=== PATIENT | female | born 1985 | race Caucasian/White ===

== ENCOUNTER 2024-04-29 10:05 | Emergency (ER) | payer OTHER ==
[~2024-04-29] VITALS: Ht 162.6 cm; Wt 65.8 kg
[2024-04-29 10:06] VITALS: TEMP 98.3
[2024-04-29 10:30] LABS: BASOPHILS % (AUTO) 0.8 % (0.0-2.0); EOSINOPHILS % (AUTO) 1.9 % (1.0-6.0); HEMATOCRIT 32.2 % (36-46); HEMOGLOBIN 9.8 g/dL (12.0-16.0); LYMPHOCYTES # (AUTO) 1.9 K/uL (1.0-4.8); LYMPHOCYTES % (AUTO) 40.1 % (22.0-44.0); MEAN CORPUSCULAR HEMOGLOBIN 19.6 pg (26.0-34.0); MEAN CORPUSCULAR HGB CONC 30.4 G/dL (31.0-37.0); MEAN CORPUSCULAR VOLUME 64 fL (80-100); MONOCYTES # (AUTO) 0.5 K/uL (0.1-1.0); MONOCYTES % (AUTO) 10.5 % (2.0-9.0); NEUTROPHILS # (AUTO) 2.2 K/uL (1.8-7.7); NEUTROPHILS % (AUTO) 46.7 % (40.0-70.0); PLATELET COUNT (AUTO) 271 K/uL (150-450); RED CELL DISTRIBUTION WIDTH 17.4 % (11.5-14.5); WHITE BLOOD COUNT (AUTO) 4.7 K/uL (4.5-11.0)
[2024-04-29 10:44] LABS: ANION GAP 6 mmol/L (8-16); CALCIUM, TOTAL 8.9 mg/dL (8.8-10.5); CARBON DIOXIDE 29 mmol/L (22-29); CHLORIDE 103 mmol/L (98-107); CREATININE 0.72 mg/dL (0.60-1.30); GLOMERULAR FILTR. RATE CALC > 60 mL/min (>60); GLUCOSE,RANDOM 90 mg/dL (70-110); POTASSIUM 3.9 mmol/L (3.5-5.1); SODIUM SERUM 138 mmol/L (136-145); UREA NITROGEN, BLOOD 21 mg/dL (7-18)
[2024-04-29] MEDS: ACETAMINOPHEN 325 MG TABLET PO ONE (10:48)
[2024-04-29 10:54] LABS: TROPONIN I-HIGH SENSITIVITY Less Than 4 ng/L (<51)
[2024-04-29 10:55] LABS: ALANINE AMINOTRANSFERASE 14 U/L (12-78); ALBUMIN 3.2 g/dL (3.4-5.0); ALKALINE PHOSPHATASE 54 U/L (46-116); ASPARTATE AMINOTRANSFERASE 16 U/L (15-37); BILIRUBIN,TOTAL 0.4 mg/dL (0.1-1.0); HCG,QUANTITATIVE < 1 mIU/mL (0-6); TOTAL PROTEIN, SERUM 6.7 g/dL (6.4-8.2)
[2024-04-29] MEDS: ACETAMINOPHEN 650 MG/ISO-OSM 65 ML IV ONE (11:25)
[2024-04-29 12:00] VITALS: BP 113/77; PULSE 68; RESP 18; O2SAT 99
[2024-04-29 12:07] LABS: COVID AG,FIA SOURCE NASAL SWAB
[2024-04-29 12:31] LABS: SARS-COV2 (COVID) ANTIGEN,FIA Negative (Negative)
== END 2024-04-29 13:08 | disposition short-term general hospital (02) ==
LOC: EMS 10:05
DX: R47.81 Slurred speech (principal); R53.1 Weakness; Z20.822 Contact with and (suspected) exposure to COVID-19
CPT/HCPCS: 99285; 70496; 96365; 71045; 87426; 80053; 84484; 84702; 85025; 36415; 70498; 82948; 93005; 70450; J0131

== ENCOUNTER 2024-07-17 14:32 | Emergency (ER) | payer OTHER ==
[~2024-07-17] VITALS: Ht 165.1 cm; Wt 65.9 kg
[2024-07-17 15:25] VITALS: TEMP 98
[2024-07-17 16:20] LABS: ANION GAP 15 mmol/L (8-16); CALCIUM, TOTAL 8.9 mg/dL (8.8-10.5); CARBON DIOXIDE 23 mmol/L (22-29); CHLORIDE 101 mmol/L (98-107); CREATININE 0.73 mg/dL (0.60-1.30); GLOMERULAR FILTR. RATE CALC > 60 mL/min (>60); GLUCOSE,RANDOM 65 mg/dL (70-110); POTASSIUM 3.5 mmol/L (3.5-5.1); SODIUM SERUM 139 mmol/L (136-145); UREA NITROGEN, BLOOD 17 mg/dL (7-18)
[2024-07-17 16:31] LABS: BASOPHILS % (AUTO) 1.3 % (0.0-2.0); HEMATOCRIT 35.3 % (36-46); HEMOGLOBIN 10.5 g/dL (12.0-16.0); LYMPHOCYTES # (AUTO) 1.6 K/uL (1.0-4.8); LYMPHOCYTES % (AUTO) 37.4 % (22.0-44.0); MEAN CORPUSCULAR HEMOGLOBIN 19.2 pg (26.0-34.0); MEAN CORPUSCULAR HGB CONC 29.8 G/dL (31.0-37.0); MEAN CORPUSCULAR VOLUME 64 fL (80-100); MONOCYTES # (AUTO) 0.3 K/uL (0.1-1.0); MONOCYTES % (AUTO) 6.3 % (2.0-9.0); NEUTROPHILS # (AUTO) 2.4 K/uL (1.8-7.7); PLATELET COUNT (AUTO) 248 K/uL (150-450); RED BLOOD CELL COUNT(AUTO) 5.48 MIL/uL (4.00-5.20); RED CELL DISTRIBUTION WIDTH 19.9 % (11.5-14.5); WHITE BLOOD COUNT (AUTO) 4.4 K/uL (4.5-11.0)
[2024-07-17 16:33] LABS: ALANINE AMINOTRANSFERASE 75 U/L (12-78); ALBUMIN 3.7 g/dL (3.4-5.0); ALKALINE PHOSPHATASE 64 U/L (46-116); ASPARTATE AMINOTRANSFERASE 20 U/L (15-37); BILIRUBIN,TOTAL 0.9 mg/dL (0.1-1.0); THYROID STIMULATING HORMONE 1.82 uIU/mL (0.36-3.74); TOTAL PROTEIN, SERUM 7.1 g/dL (6.4-8.2)
[2024-07-17] MEDS: ACETAMINOPHEN 500 MG TABLET PO ONE (16:48)
[2024-07-17 17:13] LABS: TROPONIN I-HIGH SENSITIVITY Less Than 4 ng/L (<51)
[2024-07-17 17:13] LABS: PH,URINE DRUG SCREEN 5.5 (5.0-8.0)
[2024-07-17 17:14] LABS: RBC MORPHOLOGY COMMENT ABNORMAL RBC MORPH
[2024-07-17 17:26] LABS: ALCOHOL, URINE DRUG SCREEN NEGATIVE (NEGATIVE); AMPHET/METH SCREEN,URINE NEGATIVE (NEGATIVE); BARBITURATE SCREEN, URINE NEGATIVE (NEGATIVE); BENZODIAZEPINES SCREEN,URINE NEGATIVE (NEGATIVE); CANNABINOID SCREEN,URINE NEGATIVE (NEGATIVE); COCAINE SCREEN,URINE NEGATIVE (NEGATIVE); METHADONE SCREEN, URINE NEGATIVE (NEGATIVE); OPIATE SCREEN,URINE NEGATIVE (NEGATIVE); PHENCYCLIDINE SCREEN,URINE NEGATIVE (NEGATIVE)
[2024-07-17 17:42] LABS: PATHOLOGY REVIEW, DIFF YES
[2024-07-17 18:40] VITALS: BP 138/84; PULSE 80; RESP 16; O2SAT 97
== END 2024-07-17 20:00 | disposition home or self-care (01) ==
LOC: EMS 14:32
DX: R07.89 Other chest pain (principal); M79.10 Myalgia, unspecified site; R25.1 Tremor, unspecified; I10 Essential (primary) hypertension; Z88.5 Allergy status to narcotic agent
CPT/HCPCS: 80048; 80076; 80307; 84443; 84484; 85025; 93005; 99284

== ENCOUNTER 2024-08-14 19:22 | Inpatient (IN) | payer OTHER, MEDICAID ==
[~2024-08-14] VITALS: Ht 154.9 cm; Wt 64.4 kg
[2024-08-14 20:44] LABS: COVID AG,FIA SOURCE NASAL SWAB
[2024-08-14 21:05] LABS: INFLUENZA TYPE A NEGATIVE FOR TYPE A (NEGATIVE); INFLUENZA TYPE B NEGATIVE FOR TYPE B (NEGATIVE)
[2024-08-14 21:06] LABS: SARS-COV2 (COVID) ANTIGEN,FIA Negative (Negative)
[2024-08-14 22:15] LABS: BASOPHILS % (AUTO) 0.6 % (0.0-2.0); EOSINOPHILS % (AUTO) 2.3 % (1.0-6.0); LYMPHOCYTES # (AUTO) 2.4 K/uL (1.0-4.8); LYMPHOCYTES % (AUTO) 39.5 % (22.0-44.0); MEAN CORPUSCULAR HEMOGLOBIN 19.7 pg (26.0-34.0); MEAN CORPUSCULAR HGB CONC 30.4 G/dL (31.0-37.0); MEAN CORPUSCULAR VOLUME 65 fL (80-100); MONOCYTES # (AUTO) 0.5 K/uL (0.1-1.0); MONOCYTES % (AUTO) 7.9 % (2.0-9.0); NEUTROPHILS % (AUTO) 49.7 % (40.0-70.0); PLATELET COUNT (AUTO) 264 K/uL (150-450); RED BLOOD CELL COUNT(AUTO) 5.09 MIL/uL (4.00-5.20); RED CELL DISTRIBUTION WIDTH 20.4 % (11.5-14.5); WHITE BLOOD COUNT (AUTO) 6.1 K/uL (4.5-11.0)
[2024-08-14 22:19] LABS: ANION GAP 10 mmol/L (8-16); CALCIUM, TOTAL 8.9 mg/dL (8.8-10.5); CARBON DIOXIDE 27 mmol/L (22-29); CHLORIDE 104 mmol/L (98-107); CREATININE 0.62 mg/dL (0.60-1.30); GLOMERULAR FILTR. RATE CALC > 60 mL/min (>60); GLUCOSE,RANDOM 94 mg/dL (70-110); SODIUM SERUM 141 mmol/L (136-145); UREA NITROGEN, BLOOD 9 mg/dL (7-18)
[2024-08-14 22:25] LABS: ALCOHOL, BLOOD (SERUM) < 3 mg/dL (0-10)
[2024-08-14 22:26] LABS: POTASSIUM 2.8 mmol/L (3.5-5.1)
[2024-08-15] MEDS: POTASSIUM CHLORIDE 20 MEQ ER TABLET PO ONE ×3 (02:51→06:19)
[2024-08-15] MEDS ORDERED: LORazepam 2 MG TABLET PO PRN (03:15)
[2024-08-15 09:24] VITALS: O2SAT 100
[2024-08-15 13:46] VITALS: BP 120/82; PULSE 93; RESP 18; TEMP 97.2; O2SAT 100
[2024-08-15] MEDS ORDERED: INFLUENZA VIRUS VACCINE TVS (6MO+) 2024-25/PF 45 MCG/0.5 ML SYRINGE IM. ONE (14:15)
[2024-08-15 20:09] VITALS: BP 134/62; PULSE 88; RESP 19; TEMP 97.4; O2SAT 97
[2024-08-15] MEDS ORDERED: LOPERAMIDE HCL 2 MG CAPSULE PO PRN (21:00)
[2024-08-15] MEDS ORDERED: MAGNESIUM HYDROXIDE SUSPENSION 30 ML UDCUP PO PRN (21:00)
[2024-08-15] MEDS ORDERED: DOCUSATE SODIUM 100 MG CAPSULE PO PRN (21:00)
[2024-08-15] MEDS ORDERED: PETROLATUM,WHITE 28 GM JELLY TP PRN (21:00)
[2024-08-15] MEDS ORDERED: CloNIDine HCL 0.1 MG TABLET PO PRN (21:00)
[2024-08-15] MEDS ORDERED: MAG HYDROX/ALUMINUM HYD/SIMETH ES 30 ML SUSPENSION UDCUP PO PRN (21:00)
[2024-08-15] MEDS ORDERED: ALBUTEROL SULFATE HFA 90 MCG/PUFF 8 GM INHALER IH PRN (21:00)
[2024-08-15] MEDS ORDERED: NICOTINE 14 MG/24 HOUR PATCH TD PRN (21:00)
[2024-08-15] MEDS ORDERED: ONDANSETRON 4 MG TABLET PO PRN (21:00)
[2024-08-16] MEDS: GuaiFENesin/D-METHORPHAN [SUGAR-FREE] 200-20MG/10 ML SYRUP UDCUP PO PRN (06:09)
[2024-08-16 08:25] VITALS: BP 98/96; PULSE 100; RESP 18; TEMP 98.3; O2SAT 97
[2024-08-16] MEDS: DIVALPROEX SODIUM 500 MG DR TABLET PO SCH (12:45)
[2024-08-16] MEDS: RisperiDONE 2 MG TABLET PO SCH (16:37)
[2024-08-16] MEDS: AMOXICILLIN TRIHYDRATE 500 MG CAPSULE PO SCH (17:54)
[2024-08-16 20:48] VITALS: BP 123/96; PULSE 131; RESP 19; TEMP 97.5; O2SAT 98
[2024-08-16] MEDS: IBUPROFEN 400 MG TABLET PO PRN (22:34)
[2024-08-16 23:01] VITALS: BP 138/87; PULSE 97; RESP 17; TEMP 97.5; O2SAT 98
[2024-08-17] MEDS: GuaiFENesin/D-METHORPHAN [SUGAR-FREE] 200-20MG/10 ML SYRUP UDCUP PO PRN (05:35)
[2024-08-17 08:22] VITALS: BP 109/72; PULSE 19; RESP 18; TEMP 97.4; O2SAT 97
[2024-08-17 08:30] VITALS: PULSE 75
[2024-08-17] MEDS: SERTRALINE HCL 100 MG TABLET PO SCH (08:50)
[2024-08-17 20:36] VITALS: BP 120/73; PULSE 68; RESP 16; TEMP 97.6; O2SAT 97
[2024-08-18 08:25] VITALS: BP 131/78; PULSE 86; RESP 17; TEMP 98; O2SAT 97
[2024-08-18 09:11] LABS: POTASSIUM 3.9 mmol/L (3.5-5.1)
[2024-08-18 20:15] VITALS: BP 136/95; PULSE 95; RESP 16; TEMP 98; O2SAT 95
[2024-08-18 20:43] VITALS: BP_SYST 116; BP_SYST 136; BP_DIAS 59; BP_DIAS 95; PULSE 108; PULSE 91; RESP 14; TEMP 96.8; O2SAT 98
[2024-08-18 21:30] LABS: GLUCOMETER DEV NAME(LOC) BV2S.; GLUCOSE,POINT OF CARE 111 MG/DL (70-110)
[2024-08-19 08:35] VITALS: BP 106/69; PULSE 99; RESP 16; TEMP 96.5; O2SAT 98
[2024-08-19 08:57] LABS: BASOPHILS % (AUTO) 0.8 % (0.0-2.0); EOSINOPHILS % (AUTO) 1.7 % (1.0-6.0); HEMATOCRIT 31.9 % (36-46); HEMOGLOBIN 9.7 g/dL (12.0-16.0); LYMPHOCYTES # (AUTO) 1.5 K/uL (1.0-4.8); LYMPHOCYTES % (AUTO) 34.6 % (22.0-44.0); MEAN CORPUSCULAR HGB CONC 30.4 G/dL (31.0-37.0); MEAN CORPUSCULAR VOLUME 66 fL (80-100); MONOCYTES # (AUTO) 0.3 K/uL (0.1-1.0); NEUTROPHILS # (AUTO) 2.4 K/uL (1.8-7.7); NEUTROPHILS % (AUTO) 56.9 % (40.0-70.0); PLATELET COUNT (AUTO) 233 K/uL (150-450); RED BLOOD CELL COUNT(AUTO) 4.86 MIL/uL (4.00-5.20); RED CELL DISTRIBUTION WIDTH 20.2 % (11.5-14.5); WHITE BLOOD COUNT (AUTO) 4.2 K/uL (4.5-11.0)
[2024-08-19] MEDS: HALOPERIDOL 5 MG TABLET PO PRN (18:01)
[2024-08-19 20:28] VITALS: BP 135/77; PULSE 86; RESP 17; TEMP 96.7; O2SAT 100
[2024-08-20 08:42] VITALS: BP 118/63; PULSE 93; RESP 16; TEMP 97.2; O2SAT 99
[2024-08-20 09:50] VITALS: BP 115/81; PULSE 109; RESP 18; TEMP 100; O2SAT 98
[2024-08-20] MEDS: ACETAMINOPHEN 325 MG TABLET PO PRN (10:22)
[2024-08-20 11:56] LABS: GLUCOMETER DEV NAME(LOC) POC.BV; POC SARS-COV2 AG, FIA NEGATIVE (NEGATIVE)
[2024-08-20 12:15] VITALS: BP 107/60; PULSE 76; RESP 17; TEMP 99.8; O2SAT 98
[2024-08-20 22:25] VITALS: BP 118/68; PULSE 84; RESP 16; TEMP 98; O2SAT 97
[2024-08-21 08:19] VITALS: BP 114/70; PULSE 91; RESP 16; TEMP 98.6; O2SAT 100
[2024-08-21 09:06] LABS: POTASSIUM 4.1 mmol/L (3.5-5.1)
[2024-08-21 09:12] LABS: APPEARANCE,URINE CLEAR (CLEAR); BILIRUBIN,URINE NEGATIVE (NEGATIVE); COLOR,URINE LIGHT YELLOW (YELLOW); GLUCOSE, URINE (UA) NEGATIVE (NEGATIVE); KETONES,URINE NEGATIVE (NEGATIVE); LEUKOCYTE ESTERASE ,URINE NEGATIVE (NEGATIVE); NITRATE,URINE NEGATIVE (NEGATIVE); OCCULT BLOOD,URINE NEGATIVE (NEGATIVE); PH,URINE 7.5 (5.0-8.0); PH,URINE DRUG SCREEN 7.5 (5.0-8.0); PROTEIN,URINE NEGATIVE (NEGATIVE); SPECIFIC GRAVITIY, URINE 1.014 (1.003-1.030); UROBILINOGEN,URINE <=1.0 mg/dL (<=1.0)
[2024-08-21 09:19] LABS: AMPHET/METH SCREEN,URINE NEGATIVE (NEGATIVE); BARBITURATE SCREEN, URINE NEGATIVE (NEGATIVE); BENZODIAZEPINES SCREEN,URINE NEGATIVE (NEGATIVE); CANNABINOID SCREEN,URINE NEGATIVE (NEGATIVE); COCAINE SCREEN,URINE NEGATIVE (NEGATIVE); METHADONE SCREEN, URINE NEGATIVE (NEGATIVE); OPIATE SCREEN,URINE NEGATIVE (NEGATIVE); PHENCYCLIDINE SCREEN,URINE NEGATIVE (NEGATIVE)
[2024-08-21 09:22] LABS: ALCOHOL, URINE DRUG SCREEN NEGATIVE (NEGATIVE)
[2024-08-21 16:59] VITALS: RESP 17; O2SAT 100
[2024-08-21 17:59] VITALS: RESP 17; O2SAT 100
[2024-08-21 22:21] VITALS: BP 107/61; PULSE 112; RESP 16; TEMP 98.6; O2SAT 95
[2024-08-22 08:06] VITALS: BP 130/77; PULSE 95; RESP 18; TEMP 98; O2SAT 99
[2024-08-22 10:28] VITALS: RESP 17; O2SAT 98
[2024-08-22 11:28] VITALS: RESP 18; O2SAT 99
[2024-08-22] MEDS ORDERED: AMOX TR/POT CLAV 500 MG/125 MG TABLET PO SCH (17:00)
[2024-08-22 18:50] VITALS: RESP 18
[2024-08-22 19:52] VITALS: RESP 18
[2024-08-22] MEDS: LEVOFLOXACIN 500 MG TABLET PO SCH (20:10)
[2024-08-22 21:16] VITALS: BP 132/78; PULSE 86; RESP 18; TEMP 96
[2024-08-23 08:15] VITALS: BP 111/62; PULSE 97; RESP 17; TEMP 98.8
[2024-08-23 20:25] VITALS: BP 137/78; PULSE 91; RESP 16; TEMP 98.1; O2SAT 100
[2024-08-24 08:46] VITALS: BP 102/62; PULSE 84; RESP 18; TEMP 98.7; O2SAT 98
[2024-08-24 11:18] VITALS: RESP 19
[2024-08-24 22:55] VITALS: BP 104/68; PULSE 87; RESP 18; TEMP 98; O2SAT 98
[2024-08-25 08:52] VITALS: BP 108/70; PULSE 90; RESP 17; TEMP 98.4; O2SAT 96
[2024-08-25 16:31] LABS: GLUCOMETER DEV NAME(LOC) BV2S.; GLUCOSE,POINT OF CARE 87 MG/DL (70-110)
[2024-08-25 20:50] VITALS: BP 103/60; PULSE 75; RESP 18; TEMP 96.7; O2SAT 97
[2024-08-26 08:30] VITALS: BP 100/64; PULSE 97; RESP 16; TEMP 97.5; O2SAT 97
[2024-08-26 10:30] VITALS: RESP 16; O2SAT 97
[2024-08-26 10:50] LABS: INFLUENZA TYPE A NEGATIVE FOR TYPE A (NEGATIVE); INFLUENZA TYPE B NEGATIVE FOR TYPE B (NEGATIVE)
[2024-08-26 11:30] VITALS: RESP 17; O2SAT 98
[2024-08-26] MEDS: HydrOXYzine HCL 25 MG TABLET PO PRN (17:01)
[2024-08-26 18:06] VITALS: BP 108/72; PULSE 98; RESP 18
[2024-08-26 20:18] VITALS: BP 103/65; PULSE 83; RESP 19; TEMP 97.9; O2SAT 98
[2024-08-27] VITALS (11 sets, daily range): BP systolic 89–109; BP diastolic 50–67; PULSE 86–117; RESP 17–18; TEMP 97–97.8; O2SAT 96–99
[2024-08-28 09:04] VITALS: BP 105/60; PULSE 89; RESP 16; TEMP 98; O2SAT 100
[2024-08-28 20:10] VITALS: BP 129/94; PULSE 94; RESP 19; TEMP 98.1; O2SAT 98
[2024-08-28 20:12] VITALS: BP 109/68; RESP 17; O2SAT 95
[2024-08-29 08:16] VITALS: BP 101/58; PULSE 85; RESP 16; TEMP 98.1; O2SAT 98
[2024-08-29] MEDS: HydrOXYzine HCL 25 MG TABLET PO PRN (10:45)
[2024-08-29] MEDS: ZOLPIDEM TARTRATE 10 MG TABLET PO PRN (20:11)
[2024-08-29 21:25] VITALS: BP 102/64; PULSE 85; RESP 18; TEMP 99.7; O2SAT 97
[2024-08-30 09:38] VITALS: BP 102/60; PULSE 59; RESP 18; TEMP 98; O2SAT 97
[2024-08-30 20:44] VITALS: BP 102/59; PULSE 59; RESP 16; TEMP 96.9; O2SAT 98
== END 2024-08-31 12:11 | disposition home or self-care (01) | DRG 885 ==
LOC: EMS 19:22 → B2S 08-15 09:26 → UNDODISIN 08-27 14:02
PROVIDERS: ADMIT Psychiatry & Neurology Child & Adolescent Psychiatry; ATTEND Psychiatry & Neurology Child & Adolescent Psychiatry
PROC: GZ56ZZZ Individual Psychotherapy, Supportive (ICD-10-PCS; principal; 2024-08-16)
PROC: GZHZZZZ Group Psychotherapy (ICD-10-PCS; 2024-08-16)
DX: F32.2 Major depressive disorder, single episode, severe without psychotic features (principal); R45.851 Suicidal ideations; E87.6 Hypokalemia; F41.9 Anxiety disorder, unspecified; I10 Essential (primary) hypertension; D64.9 Anemia, unspecified; Z20.822 Contact with and (suspected) exposure to COVID-19; F43.10 Post-traumatic stress disorder, unspecified; G47.00 Insomnia, unspecified; Z88.0 Allergy status to penicillin; Z88.1 Allergy status to other antibiotic agents; Z88.5 Allergy status to narcotic agent; Z88.8 Allergy status to other drugs, medicaments and biological substances
CPT/HCPCS: 80048; 80164; 80307; 81003; 82962; 84132; 84703; 85025; 87804; 90686; 99285; G0480

== ENCOUNTER 2024-08-27 14:25 | Emergency (ER) | payer OTHER ==
[~2024-08-27] VITALS: Ht 162.6 cm; Wt 47.0 kg
[2024-08-27 14:52] VITALS: TEMP 98.8
[2024-08-27] MEDS: ACETAMINOPHEN 500 MG TABLET PO ONE (16:45)
[2024-08-27] MEDS: IBUPROFEN 600 MG TABLET PO ONE (16:45)
[2024-08-27 17:43] VITALS: BP 123/73; PULSE 83; RESP 16; O2SAT 100
== END 2024-08-27 17:50 | disposition home or self-care (01) ==
LOC: EMS 14:27
DX: S00.93XA Contusion of unspecified part of head, initial encounter (principal); S20.229A Contusion of unspecified back wall of thorax, initial encounter; F32.2 Major depressive disorder, single episode, severe without psychotic features; I10 Essential (primary) hypertension; Z88.0 Allergy status to penicillin; Z88.1 Allergy status to other antibiotic agents; Z88.5 Allergy status to narcotic agent; Z88.8 Allergy status to other drugs, medicaments and biological substances; W19.XXXA Unspecified fall, initial encounter; Y93.89 Activity, other specified; Y92.89 Other specified places as the place of occurrence of the external cause; Y99.8 Other external cause status
CPT/HCPCS: 99283